=== PATIENT | male | born 1980 | race Asian ===

== ENCOUNTER 2022-06-12 14:20 | Emergency (ER) | payer OTHER ==
[~2022-06-12] VITALS: Ht 188 cm; Wt 142.9 kg
[2022-06-12 15:09] LABS: PLATELET COUNT 272 K/uL (142-355)
[2022-06-12 15:20] LABS: POTASSIUM 3.8 mmol/L (3.6-5.2)
[2022-06-12 17:49] VITALS: BP 144/101; TEMP 99.1
== END 2022-06-12 17:49 | disposition home or self-care (01) ==
LOC: ED 14:20
PROVIDERS: Family Medicine
DX: K52.89 Other specified noninfective gastroenteritis and colitis (principal); R73.9 Hyperglycemia, unspecified; U07.1 COVID-19
CPT/HCPCS: 36415; 80053; 82948; 83690; 85027; 87502; 87635; 87651; 99283; J2250; U0001

== ENCOUNTER 2022-07-09 17:00 | Emergency (ER) | payer OTHER ==
[~2022-07-09] VITALS: Ht 190.5 cm; Wt 145.2 kg
[2022-07-09 17:05] VITALS: BP 146/90; TEMP 97.9
== END 2022-07-09 18:04 | disposition home or self-care (01) ==
LOC: ED 17:00
DX: K59.09 Other constipation (principal)
CPT/HCPCS: 99283